=== PATIENT | female | born 1965 | race Caucasian/White ===

== ENCOUNTER 2018-03-07 16:55 | Outpatient (CLI) | payer OTHER ==
--- NOTE | 2018-03-07 23:44 | RAD ---
LEFT FOOT THREE VIEWS: 03/07/18 No fracture or periosteal reaction was seen. Bunion formation is seen on the medial first metatarsal head. A large calcaneal spur is present. IMPRESSION: Chronic changes but no acute bony findings. POS: HOME
== END 2018-03-07 16:56 | disposition home or self-care (01) ==
LOC: BURRAD 16:55
PROVIDERS: ATTEND Family Medicine
DX: M79.672 Pain in left foot (principal)

== ENCOUNTER 2021-12-12 14:53 | Outpatient (CLI) | payer BC | END 2021-12-12 14:54 | disposition home or self-care (01) | LOC: BURCT 14:53 | PROVIDERS: ATTEND Family Medicine | DX: R10.9 Unspecified abdominal pain (principal); R31.29 Other microscopic hematuria; N13.2 Hydronephrosis with renal and ureteral calculous obstruction | CPT/HCPCS: 74176 ==